=== PATIENT | female | born 1950 | race Two or more races ===

== ENCOUNTER 2022-12-15 07:30 | Inpatient (IN) | payer OTHER ==
[~2022-12-15] VITALS: Ht 154.9 cm; Wt 125.6 kg
[2022-12-15] MEDS ORDERED: IRBESARTAN-HCT1 EACH PO (08:48)
[2022-12-15] MEDS ORDERED: VENLAFAXINE HC150 MG PO (08:49)
[2022-12-15] MEDS ORDERED: ZIAC 2.5-6.251 EACH PO (08:49)
[2022-12-15] MEDS ORDERED: CLONAZEPAM0.5 MG PO (08:49)
[2022-12-15] MEDS ORDERED: RESTORIL30 MG PO (08:50)
[2022-12-15] MEDS ORDERED: ACID REDUCER20 M1 PO (08:50)
[2022-12-15] MEDS ORDERED: TRAZODONE HCL100 MG PO (08:50)
[2022-12-19] MEDS ORDERED: FLONASE16 GM (08:04)
[2022-12-19] MEDS ORDERED: GABAPENTIN300 M2 (08:04)
[2022-12-19] MEDS ORDERED: OMEPRAZOLE20 MG (08:04)
[2022-12-19] MEDS ORDERED: ETODOLAC400 M1 (08:04)
[2022-12-19] MEDS ORDERED: SIMVASTATIN20 MG (08:04)
[2022-12-19] MEDS ORDERED: BISOPROLOL-HCT1 EAC1 (08:04)
[2022-12-19] MEDS ORDERED: IRBESARTAN150 MG (08:04)
[2022-12-19] MEDS ORDERED: DIETHYLPROPION75 MG (08:05)
[2022-12-20] MEDS ORDERED: IBU800 MG PO (07:01)
[2022-12-20] MEDS ORDERED: NEURONTIN300 MG PO (07:01)
[2022-12-20] MEDS ORDERED: CIPRO500 MG PO (07:02)
== END 2022-12-20 10:05 | disposition home or self-care (01) | DRG 743 ==
LOC: O/R 12-19 06:15 → OB/GYN 12-19 06:15 → SURG 12-19 07:00 → OB/GYN 12-19 13:45
PROVIDERS: ADMIT Obstetrics & Gynecology Gynecology; ATTEND Obstetrics & Gynecology Gynecology
PROC: 0UT74ZZ Resection of Bilateral Fallopian Tubes, Percutaneous Endoscopic Approach (ICD-10-PCS; 2022-12-19)
PROC: 0UT24ZZ Resection of Bilateral Ovaries, Percutaneous Endoscopic Approach (ICD-10-PCS; 2022-12-19)
PROC: 0UT94ZZ Resection of Uterus, Percutaneous Endoscopic Approach (ICD-10-PCS; principal; 2022-12-19 07:00)
DX: D25.1 Intramural leiomyoma of uterus (principal); N80.03 Adenomyosis of the uterus; Z20.822 Contact with and (suspected) exposure to COVID-19

== ENCOUNTER 2022-12-28 06:10 | Inpatient (IN) | payer OTHER ==
[~2022-12-28] VITALS: Ht 154.9 cm; Wt 123.8 kg
[~2022-12-28 06:10] MED LIST: ACID REDUCER20 M1 PO; BISOPROLOL-HCT1 EAC1; CIPRO500 MG PO; CLONAZEPAM0.5 MG PO; DIETHYLPROPION75 MG; ETODOLAC400 M1; FLONASE16 GM; GABAPENTIN300 M2; IBU800 MG PO; IRBESARTAN-HCT1 EACH PO; IRBESARTAN150 MG; NEURONTIN300 MG PO; OMEPRAZOLE20 MG; RESTORIL30 MG PO; SIMVASTATIN20 MG; TRAZODONE HCL100 MG PO; VENLAFAXINE HC150 MG PO; ZIAC 2.5-6.251 EACH PO
--- NOTE | 2022-12-28 06:40 | NUR ---
SE RECIBE PTE ALERTA ORIENTADA X3.PTE REFIERE TENER DOLOR ABDOMINAL ORVILLE DESDE HACE VARIOS JUAREZ.PTE REFIERE LE INDICO QUE VISITARA LA [place] DE EMERGENCIA CON REFERIDO MEDICO.SE NANDO S/V Y SE UBICA.
--- NOTE | 2022-12-28 08:08 | NUR ---
SE ORIENTA PTE SOBRE EL TRATAMIENTO ORDENADO POR EL DR GORDON PTE ALERTA Y ORIENTADO POR 3 SE REALIZA MUESTRAS DE LABORATORIO Y SE ADMINISTRAN MEDICAMENTO LORENA ORDENADO, PTE EN ESPERA DE ESTUDIO DE CT PO&IV SE NOTIIFCA A LA RAIZA S,HOFFMAN PTE SE MANTIENE EN OBSERVACION Y BAJO TRATAMIENTO.
[2022-12-29] MEDS ORDERED: FLONASE16 GM (08:07)
[2022-12-29] MEDS ORDERED: RESTORIL30 MG (08:07)
[2023-01-20] MEDS ORDERED: QUESTRAN LIGHT210 GM PO (07:25)
[2023-01-20] MEDS ORDERED: LOPERAMIDE2 MG PO (07:25)
[2023-01-20] MEDS ORDERED: ZYRTEC10 M3 PO (07:25)
== END 2023-01-20 11:22 | disposition home or self-care (01) | DRG 329 ==
LOC: ER 06:16 → SURH 13:37
PROVIDERS: Surgery; ADMIT Obstetrics & Gynecology Gynecology; ATTEND Obstetrics & Gynecology Gynecology
PROC: BW21Y0Z Computerized Tomography (CT Scan) of Abdomen and Pelvis using Other Contrast, Unenhanced and Enhanced (ICD-10-PCS; 2022-12-28)
PROC: 02H633Z Insertion of Infusion Device into Right Atrium, Percutaneous Approach (ICD-10-PCS; 2022-12-28)
PROC: BW21ZZZ Computerized Tomography (CT Scan) of Abdomen and Pelvis (ICD-10-PCS; 2022-12-30)
PROC: BW2GYZZ Computerized Tomography (CT Scan) of Pelvic Region using Other Contrast (ICD-10-PCS; 2023-01-04)
PROC: 0DTP4ZZ Resection of Rectum, Percutaneous Endoscopic Approach (ICD-10-PCS; 2023-01-09)
PROC: 0WUF47Z Supplement Abdominal Wall with Autologous Tissue Substitute, Percutaneous Endoscopic Approach (ICD-10-PCS; 2023-01-09)
PROC: 0UQG4ZZ Repair Vagina, Percutaneous Endoscopic Approach (ICD-10-PCS; 2023-01-09)
PROC: 0DNW4ZZ Release Peritoneum, Percutaneous Endoscopic Approach (ICD-10-PCS; 2023-01-09)
PROC: 0DJD8ZZ Inspection of Lower Intestinal Tract, Via Natural or Artificial Opening Endoscopic (ICD-10-PCS; 2023-01-09)
PROC: 0D1B4Z4 Bypass Ileum to Cutaneous, Percutaneous Endoscopic Approach (ICD-10-PCS; principal; 2023-01-09 17:45)
DX: N82.3 Fistula of vagina to large intestine (principal); K65.1 Peritoneal abscess; N99.72 Accidental puncture and laceration of a genitourinary system organ or structure during other procedure; K66.0 Peritoneal adhesions (postprocedural) (postinfection); E66.01 Morbid (severe) obesity due to excess calories; F43.21 Adjustment disorder with depressed mood; Z93.2 Ileostomy status; Z20.822 Contact with and (suspected) exposure to COVID-19

== ENCOUNTER 2023-01-24 15:43 | Inpatient (IN) | payer OTHER ==
[~2023-01-24] VITALS: Ht 154.9 cm; Wt 119.7 kg
[~2023-01-24 15:43] MED LIST changes: +LOPERAMIDE2 MG PO; +QUESTRAN LIGHT210 GM PO; +RESTORIL30 MG; +ZYRTEC10 M3 PO
--- NOTE | 2023-01-24 16:33 | NUR ---
SE RECIBE PTE FEMENINA ALERTA Y ORIENTADA EN [place] ESFERAS REFIERE FUE OPERADA POR QUIEN LE REALIZO COLOSTOMIA. PTE NO RECIBIO SERVICIOS DE CURACION EN HOGAR Y SE ENCUENTRA SIN BOLSA COLECTORA COLOCADA. AREA SE OBSERVA CON ERITEMA Y SECRECIONES. PTE INDICA ARDOR Y DOLOR. SE UBICA EN OBSERVACION PARA EVALUACION.
[2023-02-05] MEDS ORDERED: INTESTINEX680 M1 PO (12:32)
[2023-02-05] MEDS ORDERED: NEURONTIN300 MG PO (12:32)
[2023-02-05] MEDS ORDERED: ACETAMINOPHEN500 M2 PO (12:32)
== END 2023-02-05 13:50 | disposition home or self-care (01) | DRG 330 ==
LOC: ER 15:43 → SURG 19:12
PROVIDERS: ADMIT Surgery; ATTEND Surgery
PROC: 0DBB4ZZ Excision of Ileum, Percutaneous Endoscopic Approach (ICD-10-PCS; 2023-02-01)
PROC: 0DB84ZZ Excision of Small Intestine, Percutaneous Endoscopic Approach (ICD-10-PCS; principal; 2023-02-01 09:00)
DX: K94.02 Colostomy infection (principal); L03.311 Cellulitis of abdominal wall; Z90.49 Acquired absence of other specified parts of digestive tract; E66.01 Morbid (severe) obesity due to excess calories; I10 Essential (primary) hypertension